=== PATIENT | female | born 1955 | race Caucasian/White ===

== ENCOUNTER 2018-01-24 12:55 | Outpatient (CLI) | payer BC, OTHER ==
[2018-01-24 14:12] LABS: #Basophils 0.1 thou/uL (0.0-0.2); #Eosinphils 0.3 thou/uL (0.0-0.7); #Lymphocytes 2.6 thou/uL (1.20-3.40); #Monocytes 0.5 thou/uL (0.11-0.59); #Neutrophils 6.1 thou/uL (1.40-6.50); %Basophils 0.9 % (0.0-1.0); %Eosinophils 2.7 % (0.0-10.0); %Monocytes 5.2 % (0.0-10.0); %Neutrophils 64.2 % (42.0-75.0); Hemoglobin 14.2 g/dL (12.0-16.0); Mean Corpuscular Hemoglobin 29.8 pg (27.0-31.0); Mean Corpuscular Volume 90.4 fL (78.0-98.0); Mean Platelet Volume 6.5 fL (7.4-10.4); Platelet Count 341 thou/uL (130-400); Red Blood Cell (RBC) Count 4.76 mill/uL (4.20-5.40); White Blood Cell (WBC) Count 9.5 thou/uL (4.8-10.8)
[2018-01-24 14:17] LABS: Bilirubin Negative (Negative); Blood, Urine Trace (Negative); Clarity CLOUDY (Clear); Glucose, Urine (Dipstick) Negative (Negative); Leukocyte Small (Negative); Nitrite Negative (Negative); Protein, Urine (Dipstick) Negative (Neg-Trace); Prothrombin Time 12.7 SEC (12.0-14.7); Specific Gravity, Urine 1.018 (1.002-1.036); Urobilinogen 0.2 mg/dL (0.2-1.0); pH, Urine 7.5 (5.0-9.0)
[2018-01-24 14:19] LABS: Bacteria/HPF None Seen HPF (None Seen); Hyaline Casts/LPF 7-10 HYALINE CAST LPF (0-3 Hyaline); Pathc Cast-AUWi Flag 1.88 (0-2.49)
[2018-01-24 14:33] LABS: Anion Gap 8 mmol/L (10-20); BUN (Urea Nitrogen) 12 mg/dL (9.8-20.1); Calc. Creatinine Clearance 0 mL/min (70-130); Calcium 9.8 mg/dL (7.8-10.44); Carbon Dioxide 30 mmol/L (23-31); Chloride 105 mmol/L (98-107); Estimated GFR-MDRD 63; Glucose 89 mg/dL (80-115); Sodium 139 mmol/L (136-145)
--- NOTE | 2018-01-24 15:44 | RAD ---
PA AND LATERAL VIEWS CHEST: HISTORY: Preoperative evaluation. FINDINGS: Comparison is made with the exam of 03/04/2003 and comparison is made with the exam of 05/20/2003. The heart size is normal. Evidence of old granulomatous disease is again seen. The heart size is no rmal. The lungs are expanded without focal areas of consolidation, pneumothoraces, or pleural effusi ons. There is scoliosis of the spine. There are postop changes of right rotator cuff repair. IMPRESSION: No acute process. POS: C
--- NOTE | 2018-01-24 17:23 | EKG ---
Test Reason : Blood Pressure : / mmHG Vent. Rate : 085 BPM Atrial Rate : 085 BPM P-R Int : 132 ms QRS Dur : 076 ms QT Int : 378 ms P-R-T Axes : 074 072 051 degrees QTc Int : 449 ms Normal sinus rhythm Normal ECG No previous ECGs available Confirmed by DR. Princess LUJAN ([id number]) on 01/24/2018 5:23:05 PM Referred By: JOSE Confirmed By:DR. Princess LUJAN
== END 2018-01-24 12:56 | disposition home or self-care (01) ==
LOC: LABBT 12:55
PROVIDERS: ATTEND Orthopaedic Surgery
DX: Z01.818 Encounter for other preprocedural examination (principal); M17.11 Unilateral primary osteoarthritis, right knee
CPT/HCPCS: 71046; 80048; 81001; 85025; 85610; 86850; 86900; 86901; 87081; 93005; 93010

== ENCOUNTER 2018-01-24 13:30 | Inpatient (IN) | payer BC, OTHER ==
[2018-01-29] MEDS ORDERED: CEFAZOLIN 2 GM/50 ML BAG ONE (09:47)
[2018-01-29] MEDS ORDERED: Sodium Chloride 0.9% 100 ML ONE (09:47)
[2018-01-29] MEDS ORDERED: Acetaminophen 325 MG TAB PO PRN ×2 (10:51→10:52)
[2018-01-29] MEDS ORDERED: Promethazine HCl 25 MG/ML VIAL IM PRN ×4 (10:51→14:02)
[2018-01-29] MEDS ORDERED: Ondansetron PF 4 MG/2 ML Vial IVP PRN ×3 (10:51→11:51)
[2018-01-29] MEDS ORDERED: traMADol HCl 50 MG TAB PO PRN ×4 (10:51→11:51)
[2018-01-29] MEDS ORDERED: PROVENTIL INHALER 6.7 G (200 INHALATIONS) INH PRN (10:51)
[2018-01-29] MEDS ORDERED: diphenhydrAMINE 25 MG CAP PO PRN ×2 (10:51→10:52)
[2018-01-29] MEDS ORDERED: Zolpidem Tartrate 5 MG TAB PO PRN ×3 (10:51→11:51)
[2018-01-29] MEDS ORDERED: Fentanyl 100 MCG/2 ML VIAL SLOW IVP PRN ×2 (10:52)
[2018-01-29] MEDS ORDERED: Fentanyl 100 MCG/2 ML VIAL ONE ×4 (10:59→16:02)
[2018-01-29] MEDS ORDERED: Midazolam HCl 2 mg/2 ml Vial ONE (10:59)
[2018-01-29] MEDS ORDERED: CEFAZOLIN/Water 2 GM/20 ML SYRINGE SLOW IVP SCH (11:00)
[2018-01-29] MEDS ORDERED: HYDROcodone/Acetaminophen 10/325 mg Tablet PO PRN (11:51)
[2018-01-29] MEDS ORDERED: Ropivacaine HCl/PF 250 ML in Premix Bag 1 BAG NERVE BLCK SCH (11:51)
[2018-01-29] MEDS ORDERED: Fentanyl 100 MCG/2 ML VIAL IV PRN (11:52)
[2018-01-29] MEDS ORDERED: Ketorolac Tromethamine 30 MG/ML VIAL IM SCH (14:00)
[2018-01-29] MEDS ORDERED: Ondansetron HCl/PF 4 MG/2 ML Vial IVP PRN (14:02)
[2018-01-29] MEDS ORDERED: Promethazine HCl 25 MG/ML VIAL SLOW IVP PRN (14:02)
[2018-01-29] MEDS ORDERED: Morphine 4 MG/ML VIAL ONE (14:55)
--- NOTE | 2018-01-29 15:08 | RAD ---
TWO VIEWS RIGHT KNEE: Comparison: None. History: Status post right knee arthroplasty. FINDINGS: Two views right knee shows the patient to be status post right knee arthroplasty without perihardware loosening or fracture. Air in the soft tissues is from recent surgery. IMPRESSION: Status post right knee arthroplasty without evidence of complication. POS: [facility]
[2018-01-29] MEDS ORDERED: Ketorolac Tromethamine 30 MG/ML VIAL ONE (15:25)
[2018-01-29] MEDS ORDERED: Bupivacaine HCl 0.5%/Epinephrine 1:200,000/PF 30 ml Vial ONE (15:30)
[2018-01-29] MEDS ORDERED: Ropivacaine 0.5% HCl/PF (150 MG/30 ML VIAL) ONE (15:30)
[2018-01-29] MEDS ORDERED: Bupivacaine 0.25% HCL 30 ML VIAL ONE (15:30)
[2018-01-29] MEDS ORDERED: PROPOFOL 200 MG/20 ML VIAL ONE (15:53)
[2018-01-29] MEDS ORDERED: Lidocaine 1% PF 5 ML VIAL ONE (15:53)
[2018-01-29] MEDS ORDERED: Ondansetron PF 4 MG/2 ML Vial ONE (15:53)
[2018-01-29] MEDS: Dextrose 5 %-0.45 % NaCl 1,000 ML IV SCH (17:38)
[2018-01-29] MEDS: Ketorolac Tromethamine 30 MG/ML VIAL IVP SCH ×2 (17:39→17:46)
[2018-01-29] MEDS: CEFAZOLIN 2 GM/50 ML-DEXTROSE 2 GM in Premix Bag 1 BAG IVPB SCH (17:47)
--- NOTE | 2018-01-29 19:39 | OP ---
DATE OF PROCEDURE: 01/29/2018 PREOPERATIVE DIAGNOSIS: Degenerative joint disease, right knee. POSTOPERATIVE DIAGNOSIS: Degenerative joint disease, right knee. SURGEON: Mike Leroy M.D. SLAG EXPANDER: Дмитрий Vlila PA-C. BLOOD LOSS: Minimal. SPECIMEN: None. DRAINS: None. COMPLICATIONS: None. TOURNIQUET TIME: 63 minutes. TITLE OF PROCEDURE: Right total knee arthroplasty using Page Triathlon 3 femur, 2 tibia, 9 mm CSX 3 polyethylene and A29 patella. PROCEDURE IN DETAIL: After informed consent was obtained in the preoperative holding area. The abida ent was taken to the operative suite where general anesthesia was induced. Once adequate level of ge neral anesthesia was obtained, the patient was positioned and a well-padded tourniquet was placed lionel und the right proximal thigh. The right lower extremity was then prepped and draped in the usual tye rile fashion. Prior to exsanguination, a time out was called and all members of the surgical team ag todd upon site, surgeon, and patient. The extremity was then exsanguinated and the tourniquet was ra ised. A midline longitudinal incision was then made directly over the patella extending two fingerbr eadths above the superior pole of the patella and two fingerbreadths inferior to the inferior patella r pole of the patella. Deeper subcutaneous layers were dissected sharply and local bleeding was cont rolled with Bovie electrocautery. A quad tendon longitudinal split was then made sharply and a media n parapatellar arthrotomy was carried out both sharp and with Bovie electrocautery, carried down to o ne fingerbreadth medial to the tibial tubercle. The knee was then placed into flexion and the patell a was everted nicely, and a copious fat pad ectomy was performed allowing for greater exposure of the tibia. The computer-assisted distal femoral fiducial was then placed and pinned firmly, and the dis steven femoral cutting guide was pinned firmly into place. The oscillating saw was then used to remove the appropriate amount of bone. The 4-in-1 cutting block was then placed on the distal femur and the oscillating saw was used to remove the appropriate amount of bone off of the anterior, posterior, an d chamfer cuts. After completion of bone cuts, the anterior cruciate ligament was resected sharply a nd the posterior cruciate ligament retractor was placed and the tibia was subluxed for better exposur e. Partial meniscectomies were carried out, and the tibial computer-assisted fiducial was pinned, an d the cutting guide was placed. Oscillating saw was then used to remove the bone with Hohmann retrac tors used to take care and protect the collateral ligaments. After the tibial resection was performe d, a laminar soap maker was placed in between the freshened bone cuts. The knee placed at 90 degrees a nd further bilateral meniscectomies were carried out, and the curved osteotome and curettage was used to remove any excess bone spurs in the posterior compartment. The trial femoral component, tibial b aseplate were placed with the appropriate polyethylene trial insert with an appropriate polyethylene spacer and patellar button. The knee was taken through full range of motion with flexion and extensi on from 0-90 degrees and patellar broach squarely in the trochlea without any squinting or subluxatio n noted. The knee was also stable to varus and valgus stressing at 0, 15, 45, and 90 degrees of flex ion. The drawer was negative. All trial components were then removed and the keel punch was used to provide the appropriate defect in the tibia with a mallet. The freshened bone cuts were copiously ir rigated with pulsatile lavage of about 1-1/2 liters to remove all excess debris. The freshened bone cuts were then dried and with suction and lap sponge. The knee was placed in flexion and retractors were placed to provide access to all bone cuts. Tobramycin impregnated methyl methacrylate cement wa s then placed on the freshened bone cuts and implants which were malleted firmly into place. Curetta ge and Whitewood elevators were used to remove any excess bone cement. The knee was placed into full ext ension and the patellar button was placed under compression, and the cement was allowed to cure. Onc e completed, the components were again taken through full range of motion and copious irrigation of t he knee was carried out with another liter of normal saline. All components were inspected fully wit h full range of motion and varus and valgus stressing. There was no laxity noted and full extension w as observed clinically. Primary closure was accomplished with #2 interrupted Vicryl stitch of the ar throtomy defect. This was oversewn with a #2 running Quill barbed stitch. The gravitational platele t system was then injected into the arthrotomy prior to closure. The subcutaneous layer was then courtney sed with a running 0 barbed Monocryl stitch and skin closure accomplished with a running subcuticular 3-0 Monocryl barbed Quill stitch and augmented with cement on the skin. Tourniquet was lowered. Go od spontaneous return of distal pulses was noted clinically and a sterile dressing was applied to the incision. The procedure was terminated without any complications. The patient was awakened in the operative suite and the tourniquet was removed, and the patient was taken to the recovery room in sta ble condition.
[2018-01-29] MEDS: Senokot S 8.6-50 MG TAB PO SCH (20:30)
[2018-01-29] MEDS: Aspirin 81 mg Enteric Coated Tablet PO SCH (20:31)
[2018-01-29] MEDS: Ferrous Gluconate 324 MG TAB PO SCH (20:31)
[2018-01-29] MEDS: HYDROcodone/Acetaminophen 10/325 mg Tablet PO PRN (20:31)
[2018-01-29] MEDS: Famotidine 20 MG TAB PO SCH (20:31)
[2018-01-29] MEDS ORDERED: Aspirin 81 mg Enteric Coated Tablet PO SCH (21:00)
[2018-01-29] MEDS ORDERED: Senokot S 8.6-50 MG TAB PO SCH (21:00)
[2018-01-29] MEDS ORDERED: Non-Formulary Item 1 EACH (Ranitidine Hcl [Ranitidine Hcl] 150 MG) PO SCH (21:00)
[2018-01-29] MEDS ORDERED: Ferrous Gluconate 324 MG TAB PO SCH (21:00)
[2018-01-30] MEDS: Ketorolac Tromethamine 30 MG/ML VIAL IVP SCH ×5 (00:54→23:55)
[2018-01-30] MEDS: CEFAZOLIN 2 GM/50 ML-DEXTROSE 2 GM in Premix Bag 1 BAG IVPB SCH (02:38)
[2018-01-30 05:18] LABS: Hemoglobin 11.1 g/dL (12.0-16.0); Mean Corpuscular HGB CONC 32.2 g/dL (32.0-36.0); Mean Corpuscular Hemoglobin 29.6 pg (27.0-31.0); Mean Corpuscular Volume 91.7 fL (78.0-98.0); Mean Platelet Volume 6.4 fL (7.4-10.4); Platelet Count 257 thou/uL (130-400); RBC Distribution Width 12.2 % (11.5-14.5); Red Blood Cell (RBC) Count 3.74 mill/uL (4.20-5.40); White Blood Cell (WBC) Count 10.7 thou/uL (4.8-10.8)
[2018-01-30] MEDS: Dextrose 5 %-0.45 % NaCl 1,000 ML IV SCH ×3 (06:38→16:09)
[2018-01-30] MEDS: HYDROcodone/Acetaminophen 10/325 mg Tablet PO PRN ×4 (08:39→21:02)
[2018-01-30] MEDS: Ferrous Gluconate 324 MG TAB PO SCH ×2 (08:40→21:03)
[2018-01-30] MEDS: Multivitamin W/ Minerals 1 TAB PO SCH (08:41)
[2018-01-30] MEDS: Famotidine 20 MG TAB PO SCH ×2 (08:41→21:03)
[2018-01-30] MEDS: Senokot S 8.6-50 MG TAB PO SCH ×2 (08:41→21:02)
[2018-01-30] MEDS: Aspirin 81 mg Enteric Coated Tablet PO SCH ×2 (08:42→21:02)
[2018-01-30] MEDS ORDERED: Multivitamin W/ Minerals 1 TAB PO SCH (09:00)
--- NOTE | 2018-01-30 12:12 | PDOC.PN ---
- Subjective Encounter Start Date: 01/30/18 Encounter Start Time: 11:00 -: old records requested/rev Patient seen and examined. No new complaints. No overnight events pt had right total knee replacement consulted for medical management pain controlled - Objective MAR Reviewed: Yes Vital Signs & Weight: Vital Signs (12 hours) Temp Pulse Resp BP Pulse Ox 01/30/18 04:50 99.1 F 84 19 107/68 97 01/30/18 00:30 99.9 F H 101 H 99 H 113/68 20 L Weight Weight 270 lb I&O: 01/29/18 01/30/18 01/31/18 06:59 06:59 06:59 Intake Total 1260 1200 Output Total 4900 1600 Balance -3640 -400 Result Diagrams: 01/30/18 04:47 Additional Labs: old labs reviewed as well Radiology Reviewed by me: Yes (knee xray reviewed) Phys Exam - Physical Examination Constitutional: NAD HEENT: PERRLA, moist MMs, sclera anicteric Neck: no JVD, supple Respiratory: no wheezing, no rales, no rhonchi Cardiovascular: RRR, no significant murmur, no rub Gastrointestinal: soft, non-tender, no distention, positive bowel sounds Musculoskeletal: no edema, pulses present right knee with dressing, nerve block+, calabrese out this morning Neurological: non-focal, normal sensation, moves all 4 limbs Lymphatic: no nodes Psychiatric: normal affect, A&O x 3 Skin: no rash, normal turgor Dx/Plan (1) Status post total right knee replacement Code(s): Z96.651 - PRESENCE OF RIGHT ARTIFICIAL KNEE JOINT Status: Acute (2) Anemia, normocytic normochromic Code(s): D64.9 - ANEMIA, UNSPECIFIED Status: Chronic (3) Asthma Code(s): J45.909 - UNSPECIFIED ASTHMA, UNCOMPLICATED Status: Chronic (4) Morbid obesity with BMI of 50.0-59.9, adult Code(s): E66.01 - MORBID (SEVERE) OBESITY DUE TO EXCESS CALORIES; Z68.43 - BODY MASS INDEX (BMI) 50-59.9, ADULT Status: Chronic (5) Osteoarthritis Code(s): M19.90 - UNSPECIFIED OSTEOARTHRITIS, UNSPECIFIED SITE Status: Chronic (6) GERD (gastroesophageal reflux disease) Code(s): K21.9 - GASTRO-ESOPHAGEAL REFLUX DISEASE WITHOUT ESOPHAGITIS Status: Chronic - Plan cont current plan of care * medication reviewed as below * symptomatic treatment * code status addressed and pt is full code * continue aspirin for DVT prophylaxis * continue pepcid * PT/OT as per [facility] protocol * nerve block as per anesthesia * home medication reconciled * pain controlled. Review of Systems - Review of Systems ENT: negative: Ear Pain, Ear Discharge, Nose Pain, Nose Discharge, Nose Congestion, Mouth Pain, Mouth Swelling, Throat Pain, Throat Swelling, Other Respiratory: negative: Cough, Dry, Shortness of Breath, Hemoptysis, SOB with Excertion, Pleuritic Pain, Sputum, Wheezing Cardiovascular: negative: chest pain, palpitations, orthopnea, paroxysmal nocturnal dyspnea, edema, light headedness, other Gastrointestinal: negative: Nausea, Vomiting, Abdominal Pain, Diarrhea, Constipation, Melena, Hematochezia, Other Genitourinary: negative: Dysuria, Frequency, Incontinence, Hematuria, Retention , Other Musculoskeletal: negative: Neck Pain, Shoulder Pain, Arm Pain, Back Pain, Hand Pain, Leg Pain, Foot Pain, Other Skin: negative: Rash, Lesions, Obed, Bruising, Other - Medications/Allergies Allergies/Adverse Reactions: Allergies Allergy/AdvReac Type Severity Reaction Status Date / Time No Known Allergies Allergy Verified 01/24/18 13:06 Medications: Current Medications Acetaminophen (Tylenol) 650 mg PO Q4H PRN PRN Reason: LANDIS/ T > 101F; Mild Pain (1-3) Hydrocodone Bitart/Acetaminophen ([place] 10/325) 1 tab PO Q4H PRN PRN Reason: Moderate Pain (4-6) Last Admin: 01/30/18 08:39 Dose: 1 tab Hydrocodone Bitart/Acetaminophen ([place] 10/325) 2 tab PO Q4H PRN PRN Reason: Severe Pain (7-10) Hydrocodone Bitart/Acetaminophen ([place] 10/325) 1 tab PO Q4H PRN PRN Reason: Pain (1-3) Hydrocodone Bitart/Acetaminophen ([place] 10/325) 2 tab PO Q4H PRN PRN Reason: PAIN (4-6) Albuterol Sulfate (Proventil Hfa) 2 puff INH BID PRN PRN Reason: Wheezing Aspirin (Ecotrin) 81 mg PO BID [facility] Last Admin: 01/30/18 08:42 Dose: 81 mg Diphenhydramine HCl (Benadryl) 25 mg PO Q6H PRN PRN Reason: Itching Famotidine (Pepcid) 20 mg PO BID [facility] Last Admin: 01/30/18 08:41 Dose: 20 mg Fentanyl (Sublimaze) 50 mcg SLOW IVP Q30MIN PRN PRN Reason: Moderate Pain (4-6) Fentanyl (Sublimaze) 100 mcg SLOW IVP Q1H PRN PRN Reason: Severe Pain (7-10) Fentanyl (Sublimaze) 50 mcg IV Q1H PRN PRN Reason: Breakthrough Pain Ferrous Gluconate (Fergon) 324 mg PO BID [facility] Last Admin: 01/30/18 08:40 Dose: 324 mg Dextrose/Sodium Chloride (D5 1/2 Ns) 1,000 mls @ 100 mls/hr IV .Q10H [facility] Last Admin: 01/30/18 08:08 Dose: Not Given Ropivacaine 250 ml/ Device 250 mls @ 10 mls/hr NERVE BLCK INF [facility] Iron/Minerals/Multivitamins (Theragran M) 1 tab PO DAILY [facility] Last Admin: 01/30/18 08:41 Dose: 1 tab Ketorolac Tromethamine (Toradol) 30 mg IVP Q6HR [facility] Stop: 01/31/18 06:01 Last Admin: 01/30/18 06:11 Dose: 30 mg Ondansetron HCl (Zofran) 4 mg IVP Q6H PRN PRN Reason: Nausea/Vomiting Ondansetron HCl (Zofran) 4 mg IVP Q6H PRN PRN Reason: Nausea/Vomiting Promethazine HCl (Phenergan) 12.5 mg IM Q4H PRN PRN Reason: Nausea/Vomiting Promethazine HCl (Phenergan) 12.5 mg IM Q4H PRN PRN Reason: Nausea Senna/Docusate Sodium (Senokot S) 2 tab PO BID [facility] Last Admin: 01/30/18 08:41 Dose: 2 tab Sodium Chloride (Flush - Normal Saline) 10 ml IVF PRN PRN PRN Reason: Saline Flush Tramadol HCl (Ultram) 100 mg PO Q6H PRN PRN Reason: Mild Pain (1-3) Tramadol HCl (Ultram) 50 mg PO Q6H PRN PRN Reason: Mild Pain (1-3) Tramadol HCl (Ultram) 100 mg PO Q6H PRN PRN Reason: Moderate Pain 4-6 Zolpidem Tartrate (Ambien) 5 mg PO HSPRN PRN PRN Reason: Insomnia Zolpidem Tartrate (Ambien) 5 mg PO HSPRN PRN PRN Reason: Insomnia
[2018-01-30] MEDS ORDERED: hydrALAZINE 20 MG/ML VIAL SLOW IVP PRN (12:14)
[2018-01-30] MEDS ORDERED: Diabetic Tussin 200 MG/10 ML UDCUP PO PRN (12:14)
[2018-01-30] MEDS ORDERED: Loperamide HCl 2 MG CAP PO PRN (12:14)
[2018-01-30] MEDS ORDERED: Cepastat Lozenges 1 LOZ PO PRN (12:14)
[2018-01-30] MEDS ORDERED: Eucerin (Mineral Oil/Petrolatum,White) 30 gm Jar TOP PRN (12:14)
[2018-01-30] MEDS ORDERED: Artificial Tears 18 DROP/0.9 ML EA EYE PRN (12:14)
[2018-01-30] MEDS ORDERED: Sodium Chloride 0.65% Nasal 44 ML BOT EA NARE PRN (12:14)
[2018-01-30] MEDS ORDERED: Acetaminophen 325 MG TAB PO PRN (12:18)
[2018-01-30 14:47] VITALS: BMI 32.1
[2018-01-31] MEDS: Dextrose 5 %-0.45 % NaCl 1,000 ML IV SCH (03:08)
[2018-01-31 05:13] LABS: Hemoglobin 10.5 g/dL (12.0-16.0); Mean Corpuscular HGB CONC 32.2 g/dL (32.0-36.0); Mean Corpuscular Hemoglobin 29.7 pg (27.0-31.0); Mean Corpuscular Volume 92.3 fL (78.0-98.0); Mean Platelet Volume 6.5 fL (7.4-10.4); Platelet Count 251 thou/uL (130-400); RBC Distribution Width 12.4 % (11.5-14.5); Red Blood Cell (RBC) Count 3.52 mill/uL (4.20-5.40); White Blood Cell (WBC) Count 12.4 thou/uL (4.8-10.8)
[2018-01-31] MEDS: Ketorolac Tromethamine 30 MG/ML VIAL IVP SCH (06:03)
--- NOTE | 2018-01-31 09:26 | PDOC.PN ---
- Subjective Encounter Start Date: 01/31/18 Encounter Start Time: 07:55 Patient seen and examined. No new complaints. No overnight events - Objective Resuscitation Status: Resuscitation Status FULL:Full Resuscitation MAR Reviewed: Yes Vital Signs & Weight: Vital Signs (12 hours) Temp Pulse Resp BP Pulse Ox 01/31/18 07:15 98.7 F 97 18 124/74 97 01/31/18 04:00 98.1 F 91 18 113/71 99 01/31/18 00:15 98.7 F 88 16 135/77 97 Weight Weight 170 lb I&O: 01/30/18 01/31/18 02/01/18 06:59 06:59 06:59 Intake Total 1260 2240 Output Total 4900 2200 Balance -3640 40 Result Diagrams: 01/31/18 05:00 Phys Exam - Physical Examination Constitutional: NAD HEENT: PERRLA, moist MMs, sclera anicteric Neck: no JVD, supple Respiratory: no wheezing, no rales, no rhonchi Cardiovascular: RRR, no significant murmur, no rub Gastrointestinal: soft, non-tender, no distention, positive bowel sounds Musculoskeletal: no edema, pulses present surgical site with dressing, nerve block in place Neurological: non-focal, normal sensation, moves all 4 limbs Psychiatric: normal affect, A&O x 3 Skin: no rash, normal turgor Dx/Plan (1) Status post total right knee replacement Code(s): Z96.651 - PRESENCE OF RIGHT ARTIFICIAL KNEE JOINT Status: Acute (2) Anemia, normocytic normochromic Code(s): D64.9 - ANEMIA, UNSPECIFIED Status: Chronic (3) Asthma Code(s): J45.909 - UNSPECIFIED ASTHMA, UNCOMPLICATED Status: Chronic (4) Morbid obesity with BMI of 50.0-59.9, adult Code(s): E66.01 - MORBID (SEVERE) OBESITY DUE TO EXCESS CALORIES; Z68.43 - BODY MASS INDEX (BMI) 50-59.9, ADULT Status: Chronic (5) Osteoarthritis Code(s): M19.90 - UNSPECIFIED OSTEOARTHRITIS, UNSPECIFIED SITE Status: Chronic (6) GERD (gastroesophageal reflux disease) Code(s): K21.9 - GASTRO-ESOPHAGEAL REFLUX DISEASE WITHOUT ESOPHAGITIS Status: Chronic - Plan cont current plan of care, PT/OT * nerve block as per anesthesia * pain controlled * pt is doing well with PT * she is interested in swing bed on discharge * medication reviewed as below * symptomatic treatment. Review of Systems - Review of Systems ENT: negative: Ear Pain, Ear Discharge, Nose Pain, Nose Discharge, Nose Congestion, Mouth Pain, Mouth Swelling, Throat Pain, Throat Swelling, Other Respiratory: negative: Cough, Dry, Shortness of Breath, Hemoptysis, SOB with Excertion, Pleuritic Pain, Sputum, Wheezing Cardiovascular: negative: chest pain, palpitations, orthopnea, paroxysmal nocturnal dyspnea, edema, light headedness, other Gastrointestinal: negative: Nausea, Vomiting, Abdominal Pain, Diarrhea, Constipation, Melena, Hematochezia, Other Genitourinary: negative: Dysuria, Frequency, Incontinence, Hematuria, Retention , Other Musculoskeletal: negative: Neck Pain, Shoulder Pain, Arm Pain, Back Pain, Hand Pain, Leg Pain, Foot Pain, Other Skin: negative: Rash, Lesions, Obed, Bruising, Other - Medications/Allergies Allergies/Adverse Reactions: Allergies Allergy/AdvReac Type Severity Reaction Status Date / Time No Known Allergies Allergy Verified 01/24/18 13:06 Medications: Current Medications Acetaminophen (Tylenol) 650 mg PO Q6H PRN PRN Reason: Headache/Fever or Pain Hydrocodone Bitart/Acetaminophen ([place] 10/325) 1 tab PO Q4H PRN PRN Reason: Pain (1-3) Hydrocodone Bitart/Acetaminophen ([place] 10/325) 2 tab PO Q4H PRN PRN Reason: PAIN (4-6) Albuterol Sulfate (Proventil Hfa) 2 puff INH BID PRN PRN Reason: Wheezing Artificial Tears (Tears Naturale) 2 drop EA EYE PRN PRN PRN Reason: Dry Eyes Aspirin (Ecotrin) 81 mg PO BID [facility] Last Admin: 01/30/18 21:02 Dose: 81 mg Diphenhydramine HCl (Benadryl) 25 mg PO Q6H PRN PRN Reason: Itching Famotidine (Pepcid) 20 mg PO BID [facility] Last Admin: 01/30/18 21:03 Dose: 20 mg Fentanyl (Sublimaze) 100 mcg SLOW IVP Q1H PRN PRN Reason: Severe Pain (7-10) Fentanyl (Sublimaze) 50 mcg IV Q1H PRN PRN Reason: Breakthrough Pain Ferrous Gluconate (Fergon) 324 mg PO BID [facility] Last Admin: 01/30/18 21:03 Dose: 324 mg Guaifenesin (Robitussin Sf) 200 mg PO Q4H PRN PRN Reason: Cough Hydralazine HCl (Apresoline) 10 mg SLOW IVP Q4H PRN PRN Reason: SBP > 180 and HR < 70 Dextrose/Sodium Chloride (D5 1/2 Ns) 1,000 mls @ 100 mls/hr IV .Q10H [facility] Last Admin: 01/31/18 03:08 Dose: Not Given Ropivacaine 250 ml/ Device 250 mls @ 10 mls/hr NERVE BLCK INF [facility] Last Admin: 01/30/18 16:08 Dose: 250 mls Iron/Minerals/Multivitamins (Theragran M) 1 tab PO DAILY [facility] Last Admin: 01/30/18 08:41 Dose: 1 tab Loperamide HCl (Imodium) 2 mg PO PRN PRN PRN Reason: Diarrhea/Loose Stools Mineral Oil/White Petrolatum (Eucerin Cream) 0 gm TOP BIDPRN PRN PRN Reason: Dry Skin Ondansetron HCl (Zofran) 4 mg IVP Q6H PRN PRN Reason: Nausea/Vomiting Promethazine HCl (Phenergan) 12.5 mg IM Q4H PRN PRN Reason: Nausea Senna/Docusate Sodium (Senokot S) 2 tab PO BID [facility] Last Admin: 01/30/18 21:02 Dose: 2 tab Sodium Chloride (Flush - Normal Saline) 10 ml IVF PRN PRN PRN Reason: Saline Flush Last Admin: 01/30/18 23:56 Dose: 10 ml Sodium Chloride ([place] Nasal [place] 0.65%) 0 ml EA NARE QIDPRN PRN PRN Reason: Nasal Congestion Throat Lozenges (Cepastat Lozenges) 1 mariangel PO Q2H PRN PRN Reason: Sore Throat Tramadol HCl (Ultram) 50 mg PO Q6H PRN PRN Reason: Mild Pain (1-3) Tramadol HCl (Ultram) 100 mg PO Q6H PRN PRN Reason: Moderate Pain 4-6 Zolpidem Tartrate (Ambien) 5 mg PO HSPRN PRN PRN Reason: Insomnia
[2018-01-31] MEDS: Senokot S 8.6-50 MG TAB PO SCH (09:31)
[2018-01-31] MEDS: Famotidine 20 MG TAB PO SCH (09:31)
[2018-01-31] MEDS: Aspirin 81 mg Enteric Coated Tablet PO SCH (09:31)
[2018-01-31] MEDS: Ferrous Gluconate 324 MG TAB PO SCH (09:31)
[2018-01-31] MEDS: Multivitamin W/ Minerals 1 TAB PO SCH (09:32)
[2018-01-31] MEDS: HYDROcodone/Acetaminophen 10/325 mg Tablet PO PRN ×2 (09:41→15:39)
[2018-01-31 16:27] VITALS: BP 123/71; TEMP 98.6
--- NOTE | 2018-02-01 10:47 | DIS ---
DATE OF ADMISSION: 01/29/2018 DATE OF DISCHARGE: 01/31/2018 PRIMARY CARE PHYSICIAN: Beni Murphy M.D. DISCHARGE DISPOSITION: [facility]. PRIMARY DISCHARGE DIAGNOSIS: Status post right total knee replacement. SECONDARY DISCHARGE DIAGNOSES: Normocytic normochromic anemia, asthma, gastroesophageal reflux disea se, morbid obesity with BMI 32, osteoarthritis. PRIMARY PROCEDURE/OPERATION: Right total knee replacement. RADIOLOGICAL INVESTIGATION: Knee x-ray. SIGNIFICANT LABORATORY DATA: WBC 12.4, hemoglobin 10.5, platelet 251. DISCHARGE MEDICATIONS: Trinity 10 one or two tablets q.6 hourly p.r.n., Ventolin inhaler 2 puffs inhal ation b.i.d., ranitidine 150 mg p.o. b.i.d., aspirin 81 mg p.o. b.i.d. CONTRAINDICATIONS: None. CODE STATUS: FULL CODE. INPATIENT CONSULTANTS: Dr. Leroy was primary. [facility] team was consulted for medical comanagement. TEST RESULTS PENDING ON DISCHARGE: None. ALLERGIES: No known drug allergy. DISCHARGE PLAN: Post hospital, the patient has appointment with Dr. Leroy on 02/18/2018 at 8:45 a.m . Patient will follow up with Dr. Beni Murphy as instructed. HOSPITAL COURSE: A 62-year-old female who was electively admitted by Dr. Leroy for right total knee replacement which was done on 01/29/2018 and after surgery, [facility] Team was consulted for medical man agement. She remained stable while in hospital. All her medication was continued while in hospital as well as on discharge she was given aspirin for deep venous thrombosis prophylaxis. Patient was re quiring more PT, OT and that is why with help of outpatient case manager. Patient is transferred to [facility]. The patient was seen and examined on the day of discharge, please see progress note from that day.
== END 2018-01-31 17:50 | disposition critical access hospital (66) | DRG 470 ==
LOC: SURG A 01-29 09:26 → SURG B 01-29 16:50
PROVIDERS: ADMIT Orthopaedic Surgery; ATTEND Orthopaedic Surgery
PROC: 0SRC0J9 Replacement of Right Knee Joint with Synthetic Substitute, Cemented, Open Approach (ICD-10-PCS; principal; 2018-01-29)
DX: M17.11 Unilateral primary osteoarthritis, right knee (principal); D64.9 Anemia, unspecified; K21.9 Gastro-esophageal reflux disease without esophagitis; J45.909 Unspecified asthma, uncomplicated; Z68.32 Body mass index [BMI] 32.0-32.9, adult; Z79.899 Other long term (current) drug therapy
CPT/HCPCS: 36415; 85027; 96374; C1713; C1776; G8978-GP-CK; G8979-GP-CI; J0670; J1885; J2001; J2250; J2270; J2405; J2704; J2795; J3010; J3370; J7050; S0020